=== PATIENT | male | born 1980 | race African-American/Black ===

== ENCOUNTER 2016-12-28 18:23 | Emergency (ER) | payer SELFPAY ==
[2016-12-28 19:23] LABS: Bilirubin Negative (Negative); Blood, Urine Negative (Negative); Clarity Clear (Clear); Glucose, Urine (Dipstick) Negative (Negative); Leukocyte Small (Negative); Nitrite Negative (Negative); Protein, Urine (Dipstick) Negative (Neg-Trace); Urobilinogen 0.2 mg/dL (0.2-1.0); pH, Urine 6.5 (5.0-9.0)
[2016-12-28 19:28] LABS: ALT (SGPT) 17 U/L (0-55); AST (SGOT) 19 U/L (5-34); Albumin 4.1 g/dL (3.5-5.0); Alkaline Phosphatase 70 U/L (40-150); Anion Gap 16 mmol/L (10-20); BUN (Urea Nitrogen) 10 mg/dL (8.9-20.6); Bilirubin, Total 0.3 mg/dL (0.2-1.2); Calc. Creatinine Clearance 0 mL/min (70-130); Carbon Dioxide 22 mmol/L (22-29); Chloride 106 mmol/L (98-107); D-Dimer Test 0.27 *mcg/mL (0.27-0.43); Estimated GFR-MDRD Greater than 90; Globulin 3.3 g/dL (2.4-3.5); Glucose 112 mg/dL (70-105); INR-International Normal Ratio 1.1; Lipase 25 U/L (8-78); Potassium 3.7 mmol/L (3.5-5.1); Protein, Total 7.4 g/dL (6.0-8.3); Prothrombin Time 14.2 SEC (12.0-14.7); Sodium 140 mmol/L (136-145)
[2016-12-28 19:29] LABS: Troponin I Less than 0.010 ng/mL (< 0.028)
[2016-12-28 19:42] LABS: Hemoglobin 13.8 g/dL (14.0-18.0); Mean Corpuscular HGB CONC 31.1 g/dL (32.0-36.0); Mean Corpuscular Hemoglobin 24.4 pg (27.0-31.0); Mean Corpuscular Volume 78.4 fl (80.0-94.0); Mean Platelet Volume 7.7 fL (7.4-10.4); Platelet Count 333 thou/uL (130-400); RBC Distribution Width 14.3 % (11.5-14.5); Red Blood Cell (RBC) Count 5.65 mill/uL (4.70-6.10)
[2016-12-28 19:44] LABS: Anisocytosis MODERATE=16-30 cells (100X) (0-5/hpf); Lymphocytes 39 % (21-51); Neutrophil 49 % (42-75); Reactive Lymphocytes 2 % (0-10)
[2016-12-28 19:45] LABS: Eosinophils 1 % (0-10); MDiff Complete? YES; Monocytes 8 % (0-10)
[2016-12-28 19:48] LABS: Bacteria/HPF None Seen HPF (None Seen); RBC/HPF 0-3 HPF (0-3); WBC/HPF 0-3 HPF (0-3)
[2016-12-28] MEDS ORDERED: Ondansetron HCl/PF 4 MG/2 ML Vial ONE (20:14)
--- NOTE | 2016-12-28 20:37 | RAD ---
CHEST TWO VIEW 12/28/16 HISTORY: Chest pain for a couple of days. COMPARISON: Chest two views 07/29/15. FINDINGS: The costophrenic sulci are incompletely evaluated as they are out of field of view. No large pneumot horax. No free air under the hemidiaphragms. The cardiac silhouette and mediastinal contours appear within normal limits. No acute osseous abnormality. IMPRESSION: Within the limits of this exam, no acute intrathoracic abnormality. POS: MARYELLEN
[2016-12-28] MEDS ORDERED: HYDROcodone/Acetaminophen 5/325 mg Tablet ONE (21:02)
--- NOTE | 2016-12-28 21:15 | CT ---
CT OF ABDOMEN AND PELVIS WITH CONTRAST 12/28/16 CLINICAL HISTORY: GI bleed. No prior imaging comparison. FINDINGS: No significant abnormality within the imaged lung base. There is a subtle hypodensity of the lateral segment left hepatic lobe, incompletely evaluated. No focal splenic lesion. The pancreas demonstrat es a homogeneous enhancement pattern. No hydronephrosis of the kidneys. No discrete adrenal mass. Reynold wel is incompletely assessed without enteric contrast administration. Wall irregularity and thickening of the rectosigmoid colon not reliably evaluated. There is moderate degree of retained fecal material throughout the colon. There is mild extension of the unopacified urinary bladder. The contrast opacified aorta demonstrates an appropriate caliber. There is no evide nce of free air. No significant ascites. No focal osseous lesion. IMPRESSION: 1. Incomplete assessment of bowel without enteric contrast. In light of the patient's history o f GI bleed, recommend further evaluation. 2. Incomplete assessment of a small hypodensity of the lateral segment left hepatic lobe. This could represent an entity such as cavernous hemangioma though is incompletely assessed. Followup wit h hemangioma protocol MRI of the abdomen is recommended for further characterization. 3. There is suggestion of wall prominence and irregularity of the rectosigmoid colon although t his area is underdistended and unopacified which precludes reliable evaluation. This could provide s ource for patient's GI bleed. Further evaluation with endoscopy may prove useful. POS: LAKIA
== END 2016-12-28 21:12 | disposition home or self-care (01) ==
LOC: NAV ERS 18:23
DX: K92.2 Gastrointestinal hemorrhage, unspecified (principal); K64.8 Other hemorrhoids; R07.89 Other chest pain; F17.210 Nicotine dependence, cigarettes, uncomplicated
CPT/HCPCS: 71020; 74177; 80053; 81003; 81015; 82274; 83690; 84484; 85025; 85379; 85610; 85730; 93005; 94760; J2405

== ENCOUNTER 2018-03-20 08:25 | Emergency (ER) | payer SELFPAY ==
[2018-03-20 09:57] LABS: Red Blood Cell (RBC) Count 6.17 mill/uL (4.70-6.10); White Blood Cell (WBC) Count 6.1 thou/uL (4.8-10.8)
[2018-03-20 09:58] LABS: %Basophils 1.7 % (0.0-1.0); %Eosinophils 0.4 % (0.0-10.0); %Lymphocytes 27.5 % (21.0-51.0); %Monocytes 5.6 % (0.0-10.0); %Neutrophils 64.9 % (42.0-75.0); Hemoglobin 13.7 g/dL (14.0-18.0); Mean Corpuscular HGB CONC 30.4 g/dL (32.0-36.0); Mean Corpuscular Hemoglobin 22.3 pg (27.0-31.0); Mean Corpuscular Volume 73.2 fL (78.0-98.0); Mean Platelet Volume 8.2 fL (7.4-10.4); Platelet Count 319 thou/uL (130-400); RBC Distribution Width 12.6 % (11.5-14.5)
[2018-03-20 09:59] LABS: #Basophils 0.1 thou/uL (0.0-0.2); #Monocytes 0.3 thou/uL (0.11-0.59); ALT (SGPT) 17 U/L (8-55); AST (SGOT) 18 U/L (5-34); Albumin 4.3 g/dL (3.5-5.0); Alkaline Phosphatase 65 U/L (40-150); Anion Gap 12 mmol/L (10-20); BUN (Urea Nitrogen) 14 mg/dL (8.9-20.6); Bilirubin, Total 0.5 mg/dL (0.2-1.2); CK (CPK) 192 U/L (30-200); Calc. Creatinine Clearance 0 mL/min (70-130); Calcium 9.8 mg/dL (7.8-10.44); Carbon Dioxide 26 mmol/L (22-29); Chloride 105 mmol/L (98-107); Estimated GFR-MDRD 72; Globulin 3.4 g/dL (2.4-3.5); Glucose 132 mg/dL (70-105); MDiff Complete? YES; Potassium 3.4 mmol/L (3.5-5.1); Protein, Total 7.7 g/dL (6.0-8.3); Sodium 140 mmol/L (136-145)
[2018-03-20 10:09] LABS: Amphetamine Not Detected (NotDetected); Barbiturates Screen Not Detected (NotDetected); Benzodiazepine Screen Not Detected (NotDetected); Cocaine Metabolite Screen Not Detected (NotDetected); Medtox Control Line Valid? VALID (VALID); Methadone Not Detected (NotDetected); Methamphetamine Not Detected (NotDetected); Opiate Screen Not Detected (NotDetected); Oxycodone Screen Not Detected (NotDetected); Phencyclidine (PCP) Not Detected (NotDetected); THC/Cannabinoid Screen Not Detected (NotDetected); Tricyclic Screen Not Detected (NotDetected)
[2018-03-20] MEDS ORDERED: Rabies Vaccine Human 2.5 UNITS VIAL ONE (10:13)
[2018-03-20 10:16] LABS: Lymphocytes 27 % (21-51); Monocytes 4 % (0-10); Neutrophil 69 % (42-75)
[2018-03-20 10:17] LABS: Anisocytosis SLIGHT = 6-15 cells (100X) (0-5/hpf); Microcytosis SLIGHT = 6-15 cells (100X) (0-5/hpf); PLT Morphology Comment Appears Adequate
[2018-03-20 10:22] LABS: Acetaminophen Less than 6.0 mcg/mL (10.0-30.0); Alcohol Less than 10 mg/dL (Less than 10); Salicylate Less than 8.0 mg/dL (15.0-30.0)
== END 2018-03-20 12:20 | disposition home or self-care (01) ==
LOC: NAV ERS 08:25
DX: S81.051A Open bite, right knee, initial encounter (principal); F20.0 Paranoid schizophrenia; F17.210 Nicotine dependence, cigarettes, uncomplicated; W54.0XXA Bitten by dog, initial encounter
CPT/HCPCS: 80053; 80306; 80307; 82550; 84443; 85025; 90375; 90471; 90675; 96372

== ENCOUNTER 2018-03-26 14:38 | Emergency (ER) | payer SELFPAY ==
[2018-03-26 15:20] LABS: #Lymphocytes 1.2 thou/uL (1.20-3.40); #Monocytes 0.5 thou/uL (0.11-0.59); #Neutrophils 3.9 thou/uL (1.40-6.50); %Basophils 0.6 % (0.0-1.0); %Eosinophils 0.2 % (0.0-10.0); %Lymphocytes 21.7 % (21.0-51.0); %Monocytes 8.4 % (0.0-10.0); %Neutrophils 69.1 % (42.0-75.0); Hemoglobin 12.6 g/dL (14.0-18.0); Hypochromia SLIGHT = 6-15 cells (100X) (0-5/hpf); MDiff Complete? YES; Mean Corpuscular HGB CONC 30.2 g/dL (32.0-36.0); Mean Platelet Volume 7.5 fL (7.4-10.4); Microcytosis SLIGHT = 6-15 cells (100X) (0-5/hpf); PLT Morphology Comment Appears Adequate; Platelet Count 297 thou/uL (130-400); RBC Distribution Width 12.9 % (11.5-14.5); Red Blood Cell (RBC) Count 5.71 mill/uL (4.70-6.10); White Blood Cell (WBC) Count 5.7 thou/uL (4.8-10.8)
[2018-03-26 15:27] LABS: ALT (SGPT) 22 U/L (8-55); AST (SGOT) 36 U/L (5-34); Acetaminophen Less than 6.0 mcg/mL (10.0-30.0); Albumin 4.3 g/dL (3.5-5.0); Alcohol Less than 10 mg/dL (Less than 10); Alkaline Phosphatase 57 U/L (40-150); Anion Gap 18 mmol/L (10-20); BUN (Urea Nitrogen) 12 mg/dL (8.9-20.6); Bilirubin, Total 0.6 mg/dL (0.2-1.2); Calc. Creatinine Clearance 0 mL/min (70-130); Calcium 9.6 mg/dL (7.8-10.44); Carbon Dioxide 18 mmol/L (22-29); Chloride 105 mmol/L (98-107); Estimated GFR-MDRD 65; Globulin 3.2 g/dL (2.4-3.5); Glucose 135 mg/dL (70-105); Potassium 3.1 mmol/L (3.5-5.1); Protein, Total 7.5 g/dL (6.0-8.3); Salicylate Less than 8.0 mg/dL (15.0-30.0); Sodium 138 mmol/L (136-145)
[2018-03-26 16:06] LABS: Bilirubin Negative (Negative); Blood, Urine Trace (Negative); Clarity Clear (Clear); Glucose, Urine (Dipstick) Negative (Negative); Leukocyte Trace (Negative); Nitrite Negative (Negative); Protein, Urine (Dipstick) Negative (Neg-Trace); Urobilinogen 0.2 mg/dL (0.2-1.0)
[2018-03-26 16:19] LABS: Amphetamine Not Detected (NotDetected); Barbiturates Screen Not Detected (NotDetected); Benzodiazepine Screen Not Detected (NotDetected); Cocaine Metabolite Screen Not Detected (NotDetected); Medtox Control Line Valid? VALID (VALID); Methadone Not Detected (NotDetected); Methamphetamine Not Detected (NotDetected); Opiate Screen Not Detected (NotDetected); Oxycodone Screen Not Detected (NotDetected); Phencyclidine (PCP) Not Detected (NotDetected); THC/Cannabinoid Screen Not Detected (NotDetected); Tricyclic Screen Not Detected (NotDetected)
[2018-03-26 16:29] LABS: Bacteria/HPF None Seen HPF (None Seen); RBC/HPF 0-3 HPF (0-3); Squamous Epithelial 0-3 HPF (0-3); WBC/HPF 0-3 HPF (0-3)
== END 2018-03-26 21:32 | disposition short-term general hospital (02) ==
LOC: NAV ERS 14:38
DX: R45.851 Suicidal ideations (principal); F17.210 Nicotine dependence, cigarettes, uncomplicated; F31.9 Bipolar disorder, unspecified
CPT/HCPCS: 80053; 80306; 80307; 81003; 81015; 85025; 99285